=== PATIENT | female | born 1955 | race Asian ===

== ENCOUNTER 2017-01-19 13:29 | Emergency (ER) | payer OTHER ==
[~2017-01-19] VITALS: Ht 152.4 cm; Wt 67.1 kg
[2017-01-19 14:25] LABS: PLATELET COUNT 225 K/uL (152-353)
[2017-01-19 14:42] LABS: POTASSIUM 3.4 mmol/L (3.6-5.2); SODIUM 132 mmol/L (136-145)
[2017-01-19 17:45] VITALS: BP 128/78; TEMP 98.2
== END 2017-01-19 17:50 | disposition home or self-care (01) ==
LOC: ED 13:29
PROVIDERS: Family Medicine
DX: J18.9 Pneumonia, unspecified organism (principal); I10 Essential (primary) hypertension
CPT/HCPCS: 36415; 80053; 85027; 87804; 96365; 96375; 99284; J1956

== ENCOUNTER 2017-10-10 17:17 | Emergency (ER) | payer OTHER ==
[~2017-10-10] VITALS: Ht 154.9 cm; Wt 70.8 kg
[2017-10-10] MEDS ORDERED: LISI10TA11 PO (17:30)
[2017-10-10 18:17] LABS: PLATELET COUNT 235 K/uL (152-353)
[2017-10-10 18:26] LABS: POTASSIUM 3.5 mmol/L (3.6-5.2); SODIUM 138 mmol/L (136-145)
[2017-10-10 19:30] VITALS: BP 147/87; TEMP 98
== END 2017-10-10 19:30 | disposition home or self-care (01) ==
LOC: ED 17:17
PROVIDERS: Specialist
DX: I16.0 Hypertensive urgency (principal)
CPT/HCPCS: 36415; 80053; 81000; 83735; 84100; 84484; 85027; 93005; 96374; 96375; 99284; J0360; J2405

== ENCOUNTER 2020-03-28 08:38 | Emergency (ER) | payer OTHER ==
[~2020-03-28] VITALS: Ht 152.4 cm; Wt 74.8 kg
[~2020-03-28 08:38] MED LIST: LISI10TA11 PO
[2020-03-28 08:47] VITALS: TEMP 97.7
[2020-03-28 09:48] LABS: PLATELET COUNT 292 K/uL (152-353)
[2020-03-28 09:58] LABS: POTASSIUM 3.4 mmol/L (3.6-5.2)
[2020-03-28 10:33] VITALS: BP 165/83
== END 2020-03-28 10:54 | disposition home or self-care (01) ==
LOC: ED 08:38
PROVIDERS: Hospitalist
DX: M54.5 Low back pain (principal); I10 Essential (primary) hypertension
CPT/HCPCS: 36415; 80053; 81000; 81025; 82150; 83690; 85027; 93005; 96374; 96375; 99284; J0360; J1885

== ENCOUNTER 2020-10-06 12:43 | Emergency (ER) | payer OTHER ==
[~2020-10-06] VITALS: Ht 152.4 cm; Wt 70.3 kg
[2020-10-06 12:50] VITALS: TEMP 99.1
[2020-10-06 13:25] LABS: PLATELET COUNT 289 K/uL (152-353)
[2020-10-06 13:50] LABS: POTASSIUM 3.2 mmol/L (3.6-5.2); SODIUM 141 mmol/L (136-145)
[2020-10-06 14:32] VITALS: BP 124/64
== END 2020-10-06 15:01 | disposition home or self-care (01) ==
LOC: ED 12:43
PROVIDERS: Emergency Medicine Emergency Medical Services
DX: R51.9 Headache, unspecified (principal); I10 Essential (primary) hypertension
CPT/HCPCS: 36415; 80048; 84484; 85027; 93005; 96360; 96375; 99284; J0360; J2270; J2405

== ENCOUNTER 2021-01-06 10:44 | Emergency (ER) | payer OTHER ==
[~2021-01-06] VITALS: Ht 152.4 cm; Wt 74.8 kg
[2021-01-06 10:53] VITALS: TEMP 98.2
[2021-01-06 11:32] LABS: PLATELET COUNT 242 K/uL (152-353)
[2021-01-06 11:42] LABS: POTASSIUM 3.5 mmol/L (3.6-5.2); SODIUM 139 mmol/L (136-145)
[2021-01-06 11:50] LABS: PARTIAL THROMBOPLASTIN TIME 26.4 SECONDS (24.5-33.6)
[2021-01-06 12:40] VITALS: BP 153/78
== END 2021-01-06 12:40 | disposition home or self-care (01) ==
LOC: ED 10:44
PROVIDERS: Hospitalist
DX: I16.0 Hypertensive urgency (principal)
CPT/HCPCS: 36415; 80053; 82550; 83880; 84484; 85027; 85610; 85730; 93005; 96374; 96376; 99284; J0360

== ENCOUNTER 2021-01-10 13:07 | Emergency (ER) | payer OTHER ==
[~2021-01-10] VITALS: Ht 152.4 cm; Wt 74.4 kg
[2021-01-10 13:19] VITALS: TEMP 98.7
[2021-01-10 13:46] LABS: PLATELET COUNT 290 K/uL (152-353)
[2021-01-10 14:13] LABS: POTASSIUM 3.7 mmol/L (3.6-5.2); SODIUM 138 mmol/L (136-145)
[2021-01-10 14:50] VITALS: BP 142/83
== END 2021-01-10 14:50 | disposition home or self-care (01) ==
LOC: ED 13:07
PROVIDERS: Hospitalist
DX: I16.0 Hypertensive urgency (principal)
CPT/HCPCS: 36415; 80053; 82550; 83880; 84484; 85027; 85610; 85730; 93005; 96374; 99284; J0360

== ENCOUNTER 2021-01-13 08:25 | Observation (INO) | payer OTHER ==
[~2021-01-13] VITALS: Ht 152.4 cm; Wt 79.0 kg
[2021-01-13 08:32] VITALS: BP 213/98; TEMP 97.9
[2021-01-13 09:10] VITALS: BP 194/96
[2021-01-13 10:10] VITALS: BP 201/101; TEMP 97.6; Ht 152.4 cm; Wt 79.0 kg
[2021-01-13] MEDS ORDERED: ZESTRIL40 MG PO (10:31)
[2021-01-13] MEDS ORDERED: HYDRALAZINE50 MG PO (10:32)
[2021-01-13] MEDS ORDERED: PROP40TA53 PO (10:33)
[2021-01-13 12:00] VITALS: BP 166/83; TEMP 98.2
[2021-01-13 16:00] VITALS: BP 121/86; TEMP 98
[2021-01-13 19:50] VITALS: BP 143/73; TEMP 98.3
[2021-01-14] VITALS: BP 134/64; TEMP 98.5
[2021-01-14 04:07] VITALS: BP 131/58; TEMP 98.8
[2021-01-14 08:00] VITALS: BP 120/78; TEMP 98.4
[2021-01-14] MEDS ORDERED: HYDROCHLOROT12.5 M1 PO (11:02)
[2021-01-14] MEDS ORDERED: METOPROLOL25 M1 PO (11:08)
[2021-01-14] MEDS ORDERED: LISI20TA11 PO (11:09)
[2021-01-14] MEDS ORDERED: HYDRALAZINE50 MG PO (11:55)
== END 2021-01-14 12:00 | disposition home or self-care (01) ==
LOC: ED 08:25 → MED/SURG 09:15
PROVIDERS: ADMIT Internal Medicine; ATTEND Internal Medicine
DX: R51.9 Headache, unspecified (principal); I10 Essential (primary) hypertension; Z91.14 Patient's other noncompliance with medication regimen
CPT/HCPCS: 36415; 82550; 84484; 87635; 93005; 96372; 96374; 99220; 99283; G0378; J0360; J1650; J1885; J2930; U0003

== ENCOUNTER 2021-01-24 18:56 | Emergency (ER) | payer OTHER ==
[~2021-01-24] VITALS: Ht 152.4 cm; Wt 83.5 kg
[~2021-01-24 18:56] MED LIST changes: +HYDRALAZINE50 MG PO; +HYDROCHLOROT12.5 M1 PO; +LISI20TA11 PO; +METOPROLOL25 M1 PO; +PROP40TA53 PO; +ZESTRIL40 MG PO
[2021-01-24 20:12] LABS: PLATELET COUNT 250 K/uL (152-353)
[2021-01-24 20:26] LABS: POTASSIUM 3.2 mmol/L (3.6-5.2)
[2021-01-24 21:40] VITALS: BP 156/93; TEMP 98.2
== END 2021-01-24 21:45 | disposition home or self-care (01) ==
LOC: ED 18:56
PROVIDERS: Emergency Medicine Emergency Medical Services
DX: I10 Essential (primary) hypertension (principal)
CPT/HCPCS: 36415; 80053; 85027; 99282; 99283

== ENCOUNTER 2021-01-29 18:04 | Emergency (ER) | payer OTHER ==
[~2021-01-29] VITALS: Ht 152.4 cm; Wt 73.5 kg
[2021-01-29 18:56] LABS: PLATELET COUNT 226 K/uL (152-353)
[2021-01-29 18:59] LABS: POTASSIUM 4.2 mmol/L (3.6-5.2)
[2021-01-29 20:25] VITALS: BP 134/70; TEMP 98.4
== END 2021-01-29 20:25 | disposition home or self-care (01) ==
LOC: ED 18:04
PROVIDERS: Family Medicine
DX: I10 Essential (primary) hypertension (principal); T46.4X5A Adverse effect of angiotensin-converting-enzyme inhibitors, initial encounter; T50.2X5A Adverse effect of carbonic-anhydrase inhibitors, benzothiadiazides and other diuretics, initial encounter; Y92.89 Other specified places as the place of occurrence of the external cause
CPT/HCPCS: 80053; 81000; 85027; 93005; 99283

== ENCOUNTER 2021-02-12 21:00 | Emergency (ER) | payer OTHER ==
[~2021-02-12] VITALS: Ht 152.4 cm; Wt 73.5 kg
[2021-02-12 21:51] LABS: PLATELET COUNT 206 K/uL (152-353)
[2021-02-12 21:56] LABS: POTASSIUM 3.3 mmol/L (3.6-5.2)
[2021-02-12 22:30] VITALS: BP 158/91; TEMP 98.1
== END 2021-02-12 22:30 | disposition home or self-care (01) ==
LOC: ED 21:00
PROVIDERS: Emergency Medicine Emergency Medical Services
DX: R42 Dizziness and giddiness (principal); E87.6 Hypokalemia
CPT/HCPCS: 36415; 80048; 85027; 93005; 99283

== ENCOUNTER 2021-02-24 03:53 | Emergency (ER) | payer OTHER ==
[~2021-02-24] VITALS: Ht 152.4 cm; Wt 73.5 kg
[2021-02-24 03:58] VITALS: TEMP 96.7
[2021-02-24 05:20] VITALS: BP 148/84
== END 2021-02-24 05:35 | disposition home or self-care (01) ==
LOC: ED 03:53
DX: I10 Essential (primary) hypertension (principal)
CPT/HCPCS: 99284

== ENCOUNTER 2021-02-26 12:20 | Emergency (ER) | payer OTHER ==
[~2021-02-26] VITALS: Ht 152.4 cm; Wt 73.5 kg
[2021-02-26 12:29] VITALS: TEMP 98.8
[2021-02-26 13:15] LABS: PLATELET COUNT 254 K/uL (152-353)
[2021-02-26 13:24] LABS: POTASSIUM 3.7 mmol/L (3.6-5.2); SODIUM 138 mmol/L (136-145)
[2021-02-26 13:29] LABS: PARTIAL THROMBOPLASTIN TIME 25.6 SECONDS (24.5-33.6)
[2021-02-26 14:00] VITALS: BP 157/82
== END 2021-02-26 14:16 | disposition home or self-care (01) ==
LOC: ED 12:20
PROVIDERS: Hospitalist
DX: I16.0 Hypertensive urgency (principal)
CPT/HCPCS: 36415; 80053; 82550; 83880; 84484; 85027; 85610; 85730; 93005; 99284

== ENCOUNTER 2021-02-27 22:15 | Emergency (ER) | payer OTHER ==
[~2021-02-27] VITALS: Ht 152.4 cm; Wt 73.5 kg
[2021-02-27 23:48] VITALS: BP 167/79; TEMP 98.4
== END 2021-02-27 23:48 | disposition home or self-care (01) ==
LOC: ED 22:15
DX: S39.012A Strain of muscle, fascia and tendon of lower back, initial encounter (principal); M54.12 Radiculopathy, cervical region
CPT/HCPCS: 99283

== ENCOUNTER 2021-03-03 17:01 | Emergency (ER) | payer OTHER ==
[~2021-03-03] VITALS: Ht 152.4 cm; Wt 73.5 kg
[2021-03-03 17:06] VITALS: TEMP 98.8
[2021-03-03 18:58] VITALS: BP 135/80
== END 2021-03-03 18:58 | disposition home or self-care (01) ==
LOC: ED 17:01
DX: G44.209 Tension-type headache, unspecified, not intractable (principal)
CPT/HCPCS: 96372; 99283; J1200; J1885; J2405

== ENCOUNTER 2021-03-22 23:35 | Emergency (ER) | payer OTHER ==
[~2021-03-22] VITALS: Ht 152.4 cm; Wt 73.5 kg
[2021-03-23 00:58] VITALS: BP 160/93; TEMP 97.9
== END 2021-03-23 00:58 | disposition home or self-care (01) ==
LOC: ED 23:35
DX: M79.644 Pain in right finger(s) (principal)
CPT/HCPCS: 99282

== ENCOUNTER 2021-03-23 10:17 | Outpatient (CLI) | payer OTHER | END 2021-03-23 21:52 | disposition home or self-care (01) | LOC: RAD 10:17 | PROVIDERS: ATTEND Internal Medicine | DX: M79.641 Pain in right hand (principal) ==

== ENCOUNTER 2021-04-05 15:41 | Emergency (ER) | payer OTHER ==
[~2021-04-05] VITALS: Ht 152.4 cm; Wt 68.9 kg
[2021-04-05 15:41] VITALS: BP 182/88; TEMP 98.5
== END 2021-04-05 16:46 | disposition home or self-care (01) ==
LOC: ED 15:45
DX: M13.841 Other specified arthritis, right hand (principal)
CPT/HCPCS: 96374; 99284; J1885

== ENCOUNTER 2021-04-16 21:49 | Emergency (ER) | payer OTHER ==
[~2021-04-16] VITALS: Ht 152.4 cm; Wt 74.4 kg
[2021-04-16 23:17] LABS: PLATELET COUNT 270 K/uL (152-353)
[2021-04-16 23:20] LABS: POTASSIUM 3.5 mmol/L (3.6-5.2)
[2021-04-17 01:01] VITALS: BP 156/82; TEMP 98.2
== END 2021-04-17 01:01 | disposition home or self-care (01) ==
LOC: ED 21:49
PROVIDERS: Emergency Medicine Emergency Medical Services
DX: I10 Essential (primary) hypertension (principal); R51.9 Headache, unspecified
CPT/HCPCS: 80048; 85027; 96374; 99284; J1885

== ENCOUNTER 2021-04-21 07:23 | Outpatient (CLI) | payer OTHER | END 2021-04-21 19:06 | disposition home or self-care (01) | LOC: LABW 07:23 | PROVIDERS: ATTEND Internal Medicine | DX: R73.9 Hyperglycemia, unspecified (principal) | CPT/HCPCS: 36415; 82951; 82952 ==

== ENCOUNTER 2021-05-16 22:17 | Emergency (ER) | payer OTHER | END 2021-05-16 23:54 | disposition home or self-care (01) | LOC: ED 22:17 | DX: M54.6 Pain in thoracic spine (principal); I10 Essential (primary) hypertension; R51.9 Headache, unspecified | CPT/HCPCS: 99282 ==

== ENCOUNTER 2021-06-13 00:18 | Emergency (ER) | payer OTHER ==
[~2021-06-13] VITALS: Ht 152.4 cm; Wt 75.8 kg
[2021-06-13 01:01] LABS: PLATELET COUNT 256 K/uL (152-353)
[2021-06-13 01:12] LABS: POTASSIUM 3.8 mmol/L (3.6-5.2); SODIUM 136 mmol/L (136-145)
[2021-06-13 01:44] VITALS: BP 191/96; TEMP 997.9
[2021-06-13 01:52] LABS: PARTIAL THROMBOPLASTIN TIME 28.4 SECONDS (24.5-33.6)
== END 2021-06-13 01:44 | disposition home or self-care (01) ==
LOC: ED 00:18
PROVIDERS: Hospitalist
DX: I10 Essential (primary) hypertension (principal); Z79.899 Other long term (current) drug therapy; Z51.81 Encounter for therapeutic drug level monitoring
CPT/HCPCS: 36415; 80053; 82550; 83880; 84484; 85027; 85610; 85730; 93005; 99283